=== PATIENT | female | born 1940 | race Caucasian/White ===

== ENCOUNTER 2021-11-04 16:41 | Emergency (ER) | payer MEDICARE, OTHER ==
[~2021-11-04 16:41] MED LIST: ADVIL200 MG PO; COLACE 100MG C100 MG PO; D3 PO; ECOTRIN81 MG PO; IBUPROFEN800 MG PO; LISINOPRIL10 MG PO; MELATONIN10 M2 PO; METOPROLOL TART25 MG PO; MIRALAX17 GM PO; NORCO 5-325 TA1 EACH PO; OMEPRAZOLE20 M1 PO; OMEPRAZOLE20 MG PO; PRILOSEC20 MG PO; PRINIVIL10 MG PO; TRAMADOL HCL50 MG PO; TYLENOL 500 MG500 MG PO; ULTRAM50 MG PO; VITACAP PO; VITAMIN D 11000 UNIT PO; VITAMIN D31000 UNI1 PO; ZESTRIL/PRINIVI10 MG PO; ZOFRAN4 MG PO
== END 2021-11-04 19:54 | disposition home or self-care (01) ==
LOC: ER1 16:41
DX: S40.011A Contusion of right shoulder, initial encounter (principal); I10 Essential (primary) hypertension; Z91.040 Latex allergy status; Z88.0 Allergy status to penicillin; W01.0XXA Fall on same level from slipping, tripping and stumbling without subsequent striking against object, initial encounter; Y92.009 Unspecified place in unspecified non-institutional (private) residence as the place of occurrence of the external cause
CPT/HCPCS: 73030; 99283